=== PATIENT | male | born 1980 | race Caucasian/White ===

== ENCOUNTER 2020-10-07 05:37 | Emergency (ER) | payer OTHER ==
[~2020-10-07 05:37] MED LIST: CARAFATE1 G1 PO; CERTAGEN1 EACH PO; FLEXERIL10 MG PO; IBUPROFEN400 MG PO; NEURONTIN300 MG PO; PRILOSEC OTC20 MG PO; PRILOSEC20 MG PO; PROTONIX 40MG T40 MG PO; PYRIDIUM200 MG PO; TESSALON PERLE100 MG PO; ULTRAM50 MG PO; VENTOLIN HFA IN18 GM INH; VICODIN 10/3251 EACH PO; ZOFRAN4 MG SL
[2020-10-07 06:14] LABS: BASOPHIL 0.5 % (0-2); EOSINOPHIL 4.7 % (0-5); HCT 37.3 % (42.0-52.0); HGB 12.5 g/dl (13.2-18.0); MCH 29.4 pg (25.0-31.0); MCHC 33.5 g/dL (32.0-36.0); MCV 87.8 fL (78.0-100.0); MONOCYTE 12.5 % (0-12); MPV 9.3 fL (6.0-9.5); NEUTROPHIL 60.1 % (41-80); NRBC 0; PLT 418 K/uL (150-400); RBC 4.25 M/uL (4.70-6.00); RDW 13.8 % (11.5-14.0); WBC 9.2 K/uL (4.0-10.5)
[2020-10-07 06:27] LABS: ALBUMIN 3.6 g/dL (3.4-5.0); BILIRUBIN - TOTAL 0.3 mg/dL (0.2-1.0); BUN/CREAT RATIO (CALC) 16.4 RATIO; C-REACTIVE PROTEIN 9.9 mg/dL (<=0.90); CREATININE 0.61 mg/dL (0.67-1.17); POTASSIUM 4.5 mmol/L (3.5-5.1); TOTAL PROTEIN 7.6 g/dL (6.4-8.2)
[2020-10-07 06:31] LABS: LACTIC ACID 1.3 mmol/L (0.4-1.9)
[2020-10-07 07:01] LABS: ACETAMINOPHEN (TYLENOL) < 2.0 ug/mL (10.0-30.0)
[2020-10-07] MEDS ORDERED: NORCO 5-325 TA1 EACH PO (07:51)
== END 2020-10-07 08:52 | disposition home or self-care (01) ==
LOC: FER 05:37
PROVIDERS: Emergency Medicine Emergency Medical Services
DX: M54.5 Low back pain (principal); M54.2 Cervicalgia; M25.552 Pain in left hip; R47.81 Slurred speech; K21.9 Gastro-esophageal reflux disease without esophagitis; Z98.1 Arthrodesis status; Z86.14 Personal history of Methicillin resistant Staphylococcus aureus infection; Z86.19 Personal history of other infectious and parasitic diseases; Z88.8 Allergy status to other drugs, medicaments and biological substances; Z79.899 Other long term (current) drug therapy
CPT/HCPCS: 36415; 71045; 72125; 80053; 82550; 83605; 84145; 84484; 85025; 86140; 87040; 93005; G0480; J1170; J1885; J2405; J7030; J7050